=== PATIENT | male | born 1945 | race African-American/Black ===

== ENCOUNTER 2019-08-30 01:08 | Emergency (ER) | payer MEDICARE ==
[~2019-08-30] VITALS: Ht 177.8 cm; Wt 73.1 kg
[~2019-08-30 01:08] MED LIST: FLOVENT; LISINOPRIL; METFORMIN
[2019-08-30 02:23] VITALS: BP 148/60
[2019-08-30] MEDS ORDERED: LOPE-101 PO (02:45)
--- NOTE | 2019-08-30 02:45 | PHYS DOC ---
Past Medical History Past Medical History: Alcoholism, Asthma, Diabetes-Type II, Hypertension, Liver Disease, Other Additional Past Medical Histor: LEFT EYE BLINDNESS Past Surgical History: Knee Replacement, Other Additional Past Surgical Histo: LEFT KNEE Smoking Status: Current Every Day Smoker Alcohol Use: Heavy Drug Use: None General Adult EDM: Chief Complaint: DENTAL PROBLEM HPI: HPI: Patient is a 73 year old male who presents with complaint of diarrhea that is been going on for about the last week. Patient states that the diarrhea is gotten such that he is not able to get to the bathroom in time because he cannot move quickly enough. Patient denies any pain. He denies any fever. [] Review of Systems: Review of Systems: Constitutional: Denies fever or chills. [] Respiratory: Denies cough or shortness of breath. [] Cardiovascular: Denies chest pain or edema. [] GI: Denies abdominal pain. Complains of diarrhea. [] Neurologic: Denies headache, focal weakness or sensory changes. [] Heart Score: Risk Factors: Risk Factors: DM, Current or recent (<one month) smoker, HTN, HLP, family history of CAD, obesity. Risk Scores: Score 0 - 3: 2.5% MACE over next 6 weeks - Discharge Home Score 4 - 6: 20.3% MACE over next 6 weeks - Admit for Clinical Observation Score 7 - 10: 72.7% MACE over next 6 weeks - Early Invasive Strategies Current Medications: Current Medications Medications (Trade) Dose Ordered Sig/Sreedhar Start Time Stop Time Status Last Admin Dose Admin Diphenoxylate HCl/ Atropine (Lomotil) 1 tab 1X ONCE 08/30/19 02:45 08/30/19 02:46 UNV Allergies: Allergies: Allergies Coded Allergies Type Severity Reaction Last Updated Verified No Known Drug Allergies 06/11/13 No Physical Exam: PE: Constitutional: Well developed, well nourished, no acute distress, non-toxic appearance. [] Cardiovascular: Regular rate and rhythm [] Lungs & Thorax: Bilateral breath sounds clear to auscultation [] Abdomen: Bowel sounds normal, soft, no tenderness. [] Skin: Warm, dry, no erythema, no rash. [] Current Patient Data: Vital Signs: Vital Signs Date Time Temp Pulse Resp B/P (MAP) Pulse Ox O2 Delivery O2 Flow Rate FiO2 08/30/19 01:18 97.5 69 12 97 97.5 EKG: EKG: [] Radiology/Procedures: Radiology/Procedures: [] Course & Med Decision Making: Course & Med Decision Making Pertinent Labs and Imaging studies reviewed. (See chart for details) [] Dragon Disclaimer: Dragon Disclaimer: This electronic medical record was generated, in whole or in part, using a voice recognition dictation system. Departure Departure Impression: Primary Impression: Diarrhea Qualified Codes: R19.7 - Diarrhea, unspecified Disposition: HOME, SELF-CARE Condition: STABLE Referrals: VANDANA VELEZ MD (PCP) Patient Instructions: Diarrhea Scripts Loperamide HCl (Imodium A-D) 2 Mg Capsule 2 MG PO TID PRN for DIARRHEA, #20 CAP Prov: KEYA VILCHIS Jr. DO 08/30/19 Justicifation of Admission Dx: Justifications for Admission: Justification of Admission Dx: Comment: (Not applicable) KEYA VILCHIS Jr. DO Aug 30, 2019 02:45
[2019-08-30] MEDS ORDERED: DIPHENOXYLATE/ATROPINE TABLET. PO ONE (03:15)
== END 2019-08-30 03:20 | disposition home or self-care (01) ==
LOC: ER 01:08
DX: R19.7 Diarrhea, unspecified (principal); J45.909 Unspecified asthma, uncomplicated; E11.9 Type 2 diabetes mellitus without complications; I10 Essential (primary) hypertension; K76.9 Liver disease, unspecified; F10.10 Alcohol abuse, uncomplicated; F17.200 Nicotine dependence, unspecified, uncomplicated; Z98.890 Other specified postprocedural states
CPT/HCPCS: 99284

== ENCOUNTER 2019-09-17 17:36 | Emergency (ER) | payer MEDICARE ==
[~2019-09-17] VITALS: Ht 180.3 cm; Wt 75.0 kg
[~2019-09-17 17:36] MED LIST changes: +LOPE-101 PO
[2019-09-17 17:55] VITALS: BP 113/73
[2019-09-17] MEDS ORDERED: ONDANSETRON ODT 4 MG TAB.RAPDIS. PO ONE (18:15)
[2019-09-17] MEDS ORDERED: AZIT250T6 PO (18:58)
--- NOTE | 2019-09-17 19:00 | PHYS DOC ---
Past Medical History Past Medical History: Alcoholism, Asthma, Diabetes-Type II, Hypertension, Liver Disease, Other Additional Past Medical Histor: LEFT EYE BLINDNESS Past Surgical History: Knee Replacement, Other Additional Past Surgical Histo: LEFT KNEE Smoking Status: Current Every Day Smoker Alcohol Use: Heavy Additional Information: '2-3 CANS A DAY' Drug Use: None General Adult EDM: Chief Complaint: EARACHE/EAR PAIN HPI: HPI: Patient is a 73 year old male who presents with complaints of left ear pain for the past 4 days. Patient states he seen his doctor on 05 September 2019 and was diagnosed with a ear infection of the left was given a regimen of Augmentin 875/125 which he completed and states his pain went away then over the past 4 days he notices pain coming back. Patient denies any injury to his ear. Denies any throat pain. Also states that he thinks he ate some bad food yesterday and vomited x1. Denies any current abdominal pain. But states he has some nausea. Patient denies any constipation or diarrhea or blood in the stools. Patient currently denies any fever or chills. Denies vision changes. Denies nasal congestion or sore throat. Denies cough or shortness of breath. Denies chest pain or swelling of his extremities. Denies urinary problems back pain problems or joint pains. Patient denies any skin rashes. Denies headaches, weaknesses, or sensory changes. Patient denies any swelling of his glands. Patient denies any recent depression or anxieties, homicidal or suicidal ideations. Patient denies any recent polyuria or polydipsia. Patient does state he has a history of hypertension, liver disease, diabetes type 2, asthma, states he is a pack-a-day smoker for greater than 40 years, is a daily beer drinker, denies illicit drug use. Patient rates his ear pain at a 5/10. Patient states he has not taken anything to relieve his pain. Patient states nothing actually relieves his pain but has not tried to take anything. Patient states that the pain feels like something is stabbing him in the ear. Patient denies anyone else living in his home with the same symptoms. Review of Systems: Review of Systems: Constitutional: Denies fever or chills. Eyes: Denies change in visual acuity. HENT: Denies nasal congestion or sore throat. Complains of left ear pain without drainage for the past 4 days. Respiratory: Denies cough or shortness of breath. Cardiovascular: Denies chest pain or edema. GI: Denies current abdominal pain, vomiting, bloody stools or diarrhea. Reports vomiting x1 yesterday after eating some bad food, reports some slight nausea this morning. : Denies dysuria. Musculoskeletal: Denies back pain or joint pain. Integument: Denies rash. Neurologic: Denies headache, focal weakness or sensory changes. Endocrine: Denies polyuria or polydipsia. Lymphatic: Denies swollen glands. Psychiatric: Denies depression or anxiety. Denies homicidal or suicidal ideation. Heart Score: Risk Factors: Risk Factors: DM, Current or recent (<one month) smoker, HTN, HLP, family history of CAD, obesity. Risk Scores: Score 0 - 3: 2.5% MACE over next 6 weeks - Discharge Home Score 4 - 6: 20.3% MACE over next 6 weeks - Admit for Clinical Observation Score 7 - 10: 72.7% MACE over next 6 weeks - Early Invasive Strategies Family History: Family History: Patient reports a family history of high blood pressure and diabetes on both his mom and dad side. Current Medications: Current Medications Medications (Trade) Dose Ordered Sig/Sreedhar Start Time Stop Time Status Last Admin Dose Admin Ondansetron HCl (Zofran Odt) 4 mg 1X ONCE 09/17/19 18:15 09/17/19 18:18 DC 09/17/19 18:22 4 MG Allergies: Allergies: Allergies Coded Allergies Type Severity Reaction Last Updated Verified No Known Drug Allergies 06/11/13 No Physical Exam: PE: Constitutional: Well developed, well nourished, no acute distress, non-toxic appearance. HENT: Normocephalic, atraumatic, right ear TM within normal limits, auditory canal partially obscured with cerumen impaction, left TM reddened with fluid level, intact, auditory canal partially obscured with cerumen impaction without purulent drainage, oropharynx moist, no oral exudates, nose normal. Eyes: PERRLA, EOMI, conjunctiva normal, no discharge. Pupils 5 mm. Neck: Normal range of motion, no tenderness, supple, no stridor. Cardiovascular:Heart rate regular rhythm, no murmur, heart sounds S1-S2, without abnormalities per auscultation. Lungs & Thorax: Bilateral breath sounds clear to auscultation all lung lobes. Abdomen: Bowel sounds normal all 4 quadrant, soft, no tenderness, no masses, no pulsatile masses. Skin: Warm, dry, no erythema, no rash. Back: No tenderness, no CVA tenderness. Extremities: No tenderness, no cyanosis, no clubbing, ROM intact, no edema. Neurologic: Alert and oriented X 3, normal motor function, normal sensory function, no focal deficits noted. Psychologic: Affect normal, judgement normal, mood normal. Denies homicidal/suicidal ideations Current Patient Data: Vital Signs: Vital Signs Date Time Temp Pulse Resp B/P (MAP) Pulse Ox O2 Delivery O2 Flow Rate FiO2 09/17/19 17:55 98.5 76 12 113/73 (86) 97 Room Air 98.5 EKG: EKG: [] Radiology/Procedures: Radiology/Procedures: [] Course & Med Decision Making: Course & Med Decision Making Pertinent Labs and Imaging studies reviewed. (See chart for details) 73-year-old male patient presents emergency department today chief complaint of left ear pain stating it started approximately 4 days ago it feels like something is stabbing him in the ear, has not taken anything for the pain. Patient reports that on 04 September he seen his primary doctor and was diagnosed with an ear infection of the left ear and was given Augmentin which he completed the antibiotic regimen. Patient also states that he thinks he ate bad food yesterday because shortly after eating he became nauseated and vomited up food particles x1 and has since then felt a little queasy to his stomach. Patient states he currently feels some slight nausea as he describes it. Patient denies any further vomiting, abdominal pain, diarrhea, blood in his stools, or constipation. Patient states his last normal BM was this morning of normal consistency. Patient nausea was treated with sublingual Zofran in the emergency department which resolved his nausea. Patient exam concerning for otitis media of the left TM. Also cerumen impaction bilateral ears partially obstructing both auditory canals. Patient will be treated with a prescription for Zithromax for the otitis media, Cerumenex for the cerumen impaction. Discharge instructions were reviewed with the patient who is agreeable to take medications as prescribed. Patient discharged to home with antibiotics and Cerumenex prescriptions has no further questions or concerns. Dragon Disclaimer: Dragon Disclaimer: This electronic medical record was generated, in whole or in part, using a voice recognition dictation system. Departure Departure Impression: Primary Impression: Otitis media Qualified Codes: H66.005 - Acute suppurative otitis media without spontaneous rupture of ear drum, recurrent, left ear Additional Impressions: Cerumen impaction Qualified Codes: H61.23 - Impacted cerumen, bilateral Food poisoning Nausea Disposition: HOME, SELF-CARE Condition: GOOD Referrals: VANDANA VELEZ MD (PCP) Patient Instructions: Cerumen Impaction, Food Poisoning, Nausea, Adult, Otitis Media, Adult Additional Instructions: Take medications as prescribed. Follow-up with your doctor soon. Return to ER for further concerns. Obtain DEBROX medication from the pharmacy to help with your excessive earwax and use as directed in both ears. Scripts Azithromycin (AZITHROMYCIN TABLET) 250 Mg Tablet 1 PKG PO UD for 5 Days, #6 TAB 0 Refills 2 the first day followed by 1 for days 2-5 Prov: VY REDDY APRN 09/17/19 Justicifation of Admission Dx: Justifications for Admission: Justification of Admission Dx: N/A VY REDDY APRN Sep 17, 2019 19:00
== END 2019-09-17 19:26 | disposition home or self-care (01) ==
LOC: ER 17:36
DX: T62.8X1A Toxic effect of other specified noxious substances eaten as food, accidental (unintentional), initial encounter (principal); R11.2 Nausea with vomiting, unspecified; H66.005 Acute suppurative otitis media without spontaneous rupture of ear drum, recurrent, left ear; H61.23 Impacted cerumen, bilateral; F10.20 Alcohol dependence, uncomplicated; Y90.9 Presence of alcohol in blood, level not specified; E11.9 Type 2 diabetes mellitus without complications; I10 Essential (primary) hypertension; F17.200 Nicotine dependence, unspecified, uncomplicated; J45.909 Unspecified asthma, uncomplicated; Y92.89 Other specified places as the place of occurrence of the external cause
CPT/HCPCS: 99283